=== PATIENT | male | born 1950 | race Hispanic/Latino ===

== ENCOUNTER → 2025-08-02 | Day surgery (SDC) | payer MEDICARE ==
[2025-07-28 09:31] LABS: BASOPHILS % 1.0 % (0.0-1.0); EOSINOPHILS % 6.8 % (0.0-6.0); LYMPHOCYTES % 29.2 % (18.0-39.1); MONOCYTES % 6.9 % (4.4-11.3); NEUTROPHILS % 56.0 % (38.7-80.0); RED CELL DISTRIBUTION WIDTH 13.3 % (11.7-14.4)
[~2025-08-02] MED LIST: ASPIRIN81 MG PO; LACTATED RINGER'S 1,000 ML ONE; LIDOCAINE HCL 2% LOCAL INJ 5 ML SDV VIAL INJ ONE; METFORMIN HCL500 M1 PO; METFORMIN HCL500 MG PO; OZEMPIC1 MG/0.71 INJ; PROPOFOL IV EMULSION 10 MG/ML 20 ML VIAL ONE; ROSUVASTATIN CAL5 MG PO; VITAMIN D3 PO; ZESTRIL20 MG PO; ZETIA10 MG PO
[2025-08-02 11:42] VITALS: TEMP 97.1
[2025-08-02 12:00] VITALS: BP 126/80; PULSE 56; RESP 18; O2SAT 100
== END | disposition home or self-care (01) ==
LOC: OR 08:29
PROVIDERS: ATTEND Internal Medicine Gastroenterology
DX: Z12.11 Encounter for screening for malignant neoplasm of colon (principal); D12.5 Benign neoplasm of sigmoid colon; K57.30 Diverticulosis of large intestine without perforation or abscess without bleeding; K64.8 Other hemorrhoids; E11.9 Type 2 diabetes mellitus without complications; I10 Essential (primary) hypertension; I73.9 Peripheral vascular disease, unspecified; Z01.810 Encounter for preprocedural cardiovascular examination; Z01.812 Encounter for preprocedural laboratory examination; Z79.82 Long term (current) use of aspirin; Z79.84 Long term (current) use of oral hypoglycemic drugs; Z79.85 Long-term (current) use of injectable non-insulin antidiabetic drugs; Z79.899 Other long term (current) drug therapy; Z68.28 Body mass index [BMI] 28.0-28.9, adult; Z71.3 Dietary counseling and surveillance; Z95.820 Peripheral vascular angioplasty status with implants and grafts
CPT/HCPCS: 36415 ×2; 45385; 82948; 85025; 88305; 93005; J2003; J2704; J7121